=== PATIENT | male | born 1985 | race Two or more races ===

== ENCOUNTER 2020-02-25 17:46 | Emergency (ER) | payer BC ==
[2020-02-25] MEDS ORDERED: ONDANSETRON HCL INJ/PF 4 MG/2 ML SDV IV ONE (18:48)
--- NOTE | 2020-02-25 18:59 | ER Document Report ---
ED GI/ - General Chief Complaint: Nausea/Vomiting Stated Complaint: NAUSEA,VOMITING,DIARRHEA,HEADACHE Time Seen by Provider: 02/25/20 18:15 Notes: CHIEF COMPLAINT: Abdominal pain nausea vomiting diarrhea HPI: 34-year-old male presenting for mid abdominal pain with multiple episodes of vomiting and diarrhea today. No fever. Describes the pain is sharp in nature has had 3 episodes of vomiting today 2 episodes of diarrhea. No definitive fever. Patient states that he did test positive for COVID in September was never retested ROS: See HPI - all other systems were reviewed and are otherwise negative Constitutional: no fever Eyes: no drainage, no blurred vision ENT: no runny nose, no sore throat Cardiovascular: no chest pain Resp: no SOB, no cough GI: + vomiting, + diarrhea, + abdominal pain : no dysuria Integumentary: no rash Allergy: no hives Musculoskeletal: no extremity pain or swelling Neurological: no numbness/tingling, no weakness MEDICATIONS: I agree with the patient medications as charted by the RN. ALLERGIES: I agree with the allergies as charted by the RN. PAST MEDICAL HISTORY/PAST SURGICAL HISTORY: Reviewed and agree as charted by RN. SOCIAL HISTORY: Reviewed and agree as charted by RN. FAMILY HISTORY: No significant familial comorbid conditions directly related to patient complaint EXAM: Reviewed vital signs as charted by RN. CONSTITUTIONAL: Alert and oriented and responds appropriately to questions. Well-appearing; well-nourished HEAD: Normocephalic; atraumatic EYES: PERRL; Conjunctivae clear, sclerae non-icteric ENT: normal nose; no rhinorrhea; moist mucous membranes; pharynx without lesions noted, no uvula edema or deviation, no tonsillar hypertrophy, phonation normal NECK: Supple without meningismus; non-tender; no cervical lymphadenopathy, no masses CARD: RRR; no murmurs, no clicks, no rubs, no gallops; symmetric distal pulses RESP: Normal chest excursion without splinting or tachypnea; breath sounds clear and equal bilaterally; no wheezes, no rhonchi, no rales, pulse oximetry 98% on room air not hypoxic ABD/GI: Normal bowel sounds; non-distended; soft, mild periumbilical lower epigastric tenderness on palpation no specific right lower quadrant tenderness on palpation, no rebound, no guarding; no palpable organomegaly or masses. BACK: The back appears normal and is non-tender to palpation, there is no CVA tenderness EXT: Normal ROM in all joints; non-tender to palpation; no cyanosis, no effusions, no edema SKIN: Normal color for age and race; warm; dry; good turgor; no acute lesions noted NEURO: Moves all extremities equally; Motor and sensory function intact PSYCH: The patient's mood and manner are appropriate. Grooming and personal hygiene are appropriate. MDM: 34-year-old male nausea vomiting diarrhea today with mild upper periumbilical pain. Will obtain CT imaging to evaluate for appendicitis, will obtain screening labs treat nausea vomiting. - Related Data Allergies/Adverse Reactions: No Known Allergies Allergy (Unverified 02/25/20 19:13) Past Medical History - Social History Smoking Status: Unknown if Ever Smoked Frequency of alcohol use: Occasional Drug Abuse: None Family History: Reviewed & Not Pertinent Physical Exam - Vital signs Vitals: Temp Pulse Resp BP Pulse Ox 99.4 F 96 18 131/78 H 100 02/25/20 18:18 02/25/20 18:18 02/25/20 18:18 02/25/20 18:18 02/25/20 18:18 Course - Re-evaluation Re-evalutation: 02/25/20 22:[address] shows mild scattered lymphadenopathy that is nonspecific. Will recheck patient for COVID-19 he will self quarantine at home. I will prescribe Zofran for nausea vomiting - Vital Signs Vital signs: Temp Pulse Resp BP Pulse Ox 99.4 F 96 18 131/78 H 100 02/25/20 18:18 02/25/20 18:18 02/25/20 18:18 02/25/20 18:18 02/25/20 18:18 - Laboratory Result Diagrams: 02/25/20 19:17 02/25/20 19:17 Laboratory results interpreted by me: 02/25/20 02/25/20 02/25/20 19:17 19:17 21:05 Lymph % (Auto) 4.5 L Absolute Lymphs (auto) 0.4 L Seg Neutrophils % 91.0 H Total Protein 8.3 H Urine Protein 100 H Urine Ketones 20 H Urine Urobilinogen 4.0 H Discharge - Discharge Clinical Impression: Vomiting, Abdominal pain, epigastric, Person under investigation for COVID-19 Condition: Stable Disposition: HOME, SELF-CARE Additional Instructions: Take Zofran for any recurrent nausea or vomiting. You are considered a person under investigation for COVID-19 at this time self quarantine at home until you have a test result that is either negative or positive. Test results usually take 2 to 5 days and you should hear from someone at the hospital about your test result Prescriptions: Ondansetron [Zofran Odt 4 mg Tablet] 1 - 2 tab PO Q4H PRN #15 tab.rapdis PRN Reason: For Nausea/Vomiting Referrals: BENITO HILTON MD [[facility]AFF] - Follow up as needed
[2020-02-25 19:39] LABS: ABSOLUTE LYMPHOCYTES (AUTO) 0.4 10^3/uL (0.5-4.7); ABSOLUTE MONOCYTES (AUTO) 0.3 10^3/uL (0.1-1.4); ABSOLUTE NEUT (AUTO) 7.1 10^3/uL (1.7-8.2); BASOPHILS % (AUTO) 0.1 % (0-2); EOSINOPHILS % (AUTO) 0.2 % (0-6); HEMOGLOBIN 14.7 g/dL (13.5-17.0); LYMPHOCYTES % (AUTO) 4.5 % (13-45); MEAN CORPUSCULAR HEMOGLOBIN 28.2 pg (27.0-33.4); MEAN CORPUSCULAR HGB CONC 34.1 g/dL (32.0-36.0); MEAN CORPUSCULAR VOLUME 83 fl (80-97); MONOCYTES % (AUTO) 4.2 % (3-13); PLATELET COUNT 229 10^3/uL (150-450); RED CELL DISTRIBUTION WIDTH 13.3 % (11.5-14.0); TOTAL CELLS COUNTED % (AUTO) 100 %; WHITE BLOOD COUNT 7.8 10^3/uL (4.0-10.5)
[2020-02-25 20:59] LABS: ALBUMIN 4.8 g/dL (3.5-5.0); ALKALINE PHOSPHATASE 85 U/L (38-126); ANION GAP 9 (5-19); ASPARTATE AMINO TRANSFERASE 30 U/L (17-59); BILIRUBIN,DIRECT 0.3 mg/dL (0.0-0.4); BILIRUBIN,TOTAL 0.5 mg/dL (0.2-1.3); BLOOD UREA NITROGEN 14 mg/dL (7-20); CALCIUM 9.6 mg/dL (8.4-10.2); CARBON DIOXIDE 26 mmol/L (22-30); CHLORIDE 104 mmol/L (98-107); GLUCOSE 100 mg/dL (75-110); POTASSIUM 4.3 mmol/L (3.6-5.0); TOTAL PROTEIN 8.3 g/dL (6.3-8.2)
[2020-02-25 21:35] LABS: APPEARANCE,URINE CLEAR; BILIRUBIN,URINE NEGATIVE (NEGATIVE); COLOR,URINE YELLOW; GLUCOSE, URINE NEGATIVE (NEGATIVE); KETONES,URINE 20 mg/dL (NEGATIVE); LEUKOCYTE ESTERASE,URINE NEGATIVE (NEGATIVE); NITRITE,URINE NEGATIVE (NEGATIVE); PROTEIN,URINE 100 mg/dL (NEGATIVE); URINE SPECIFIC GRAVITY 1.026
--- NOTE | 2020-02-25 22:10 | RADIOLOGY REPORT (SQ) ---
EXAM DESCRIPTION: CT ABDOMEN PELVIS WITH IV CONTRAST COMPLETED DATE/TME: 02/25/2020 00:00 CLINICAL HISTORY: 34 years Male abd pain COMPARISON: None. TECHNIQUE: Contiguous axial images obtained through the abdomen and pelvis following IV contrast. Reformatted images obtained. This exam was performed according to our department optimization program which includes automated exposure control, adjustment of the mA and/or kv according to patient size and/or use of iterative reconstruction technique. FINDINGS: The liver appears unremarkable. The spleen and pancreas appear unremarkable. No adrenal masses. The kidneys appear unremarkable. No hydronephrosis. The gallbladder is visualized. No aneurysmal dilatation of the aorta. No bowel obstruction. The appendix is unremarkable. No significant free fluid noted. Scattered small mesenteric lymph nodes which are nonspecific finding. IMPRESSION: Mildly prominent mesenteric lymph nodes No additional evidence of acute process
[2020-02-25 23:57] VITALS: BP 121/84
== END 2020-02-25 23:56 | disposition home or self-care (01) ==
LOC: ER 17:46
DX: R11.2 Nausea with vomiting, unspecified (principal); R10.13 Epigastric pain; R19.7 Diarrhea, unspecified; R51 Headache; Z20.828 Contact with and (suspected) exposure to other viral communicable diseases
CPT/HCPCS: 99285; 96374; 36415; 83690; 85025; 80053; 81001; 74177; U0003; J2405; C9803; 87635

== ENCOUNTER 2020-02-28 18:55 | Emergency (ER) | payer BC ==
[2020-02-28] MEDS ORDERED: ONDANSETRON 4 MG TAB.RAPDIS PO ONE (19:15)
--- NOTE | 2020-02-28 19:17 | ER Document Report ---
ED Medical Screen (RME) - General Chief Complaint: Vomiting/Diarrhea Stated Complaint: VOMITING/DIARRHEA Time Seen by Provider: 02/28/20 19:15 Mode of Arrival: Ambulatory Information source: Patient Notes: 34-year-old male presented to ED for nausea vomiting and diarrhea since Tuesday. He states he was seen a couple days ago for the same thing. He states he has vomited twice today had 3 diarrheal stools. He states he had a temperature 101.1 about a hour before coming in and took some DayQuil. He is alert oriented respirations regular and unlabored speaking in full sentences. I have greeted and performed a rapid initial assessment of this patient. A comprehensive ED assessment and evaluation of the patient, analysis of test results and completion of medical decision making process will be conducted by an additional ED providers. - Related Data Allergies/Adverse Reactions: No Known Allergies Allergy (Unverified 02/25/20 19:13) Physical Exam - Vital signs Vitals: Temp Pulse Resp BP Pulse Ox 99.1 F 93 18 129/84 H 99 02/28/20 19:13 02/28/20 19:13 02/28/20 19:13 02/28/20 19:13 02/28/20 19:13 Course - Vital Signs Vital signs: Temp Pulse Resp BP Pulse Ox 99.1 F 93 18 129/84 H 99 02/28/20 19:13 02/28/20 19:13 02/28/20 19:13 02/28/20 19:13 02/28/20 19:13
[2020-02-28] MEDS ORDERED: NORMAL SALINE 1000 ML 1,000 ML IV ONE ×2 (19:18→22:13)
[2020-02-28 20:48] LABS: ABSOLUTE EOSINOPHILS # (AUTO) 0.1 10^3/uL (0.0-0.6); ABSOLUTE LYMPHOCYTES (AUTO) 0.6 10^3/uL (0.5-4.7); ABSOLUTE MONOCYTES (AUTO) 0.7 10^3/uL (0.1-1.4); ABSOLUTE NEUT (AUTO) 3.5 10^3/uL (1.7-8.2); BASOPHILS % (AUTO) 0.2 % (0-2); EOSINOPHILS % (AUTO) 1.5 % (0-6); HEMATOCRIT 46.2 % (37.9-51.0); HEMOGLOBIN 15.5 g/dL (13.5-17.0); LYMPHOCYTES % (AUTO) 11.7 % (13-45); MEAN CORPUSCULAR HEMOGLOBIN 27.7 pg (27.0-33.4); MEAN CORPUSCULAR HGB CONC 33.4 g/dL (32.0-36.0); MEAN CORPUSCULAR VOLUME 83 fl (80-97); MONOCYTES % (AUTO) 13.7 % (3-13); PLATELET COUNT 221 10^3/uL (150-450); RED BLOOD COUNT 5.58 10^6/uL (4.35-5.55); RED CELL DISTRIBUTION WIDTH 13.3 % (11.5-14.0); SEGMENTED NEUTROPHILS % (AUTO) 72.9 % (42-78); TOTAL CELLS COUNTED % (AUTO) 100 %; WHITE BLOOD COUNT 4.8 10^3/uL (4.0-10.5)
[2020-02-28] MEDS ORDERED: FAMOTIDINE 20 MG TABLET PO ONE (21:07)
[2020-02-28] MEDS ORDERED: PROMETHAZINE HCL 25 MG TABLET PO ONE (21:07)
[2020-02-28 21:08] LABS: ALBUMIN 4.6 g/dL (3.5-5.0); ALKALINE PHOSPHATASE 72 U/L (38-126); ANION GAP 9 (5-19); ASPARTATE AMINO TRANSFERASE 28 U/L (17-59); BILIRUBIN,DIRECT 0.3 mg/dL (0.0-0.4); BILIRUBIN,TOTAL 0.5 mg/dL (0.2-1.3); BLOOD UREA NITROGEN 11 mg/dL (7-20); CALCIUM 9.2 mg/dL (8.4-10.2); CARBON DIOXIDE 27 mmol/L (22-30); CHLORIDE 102 mmol/L (98-107); GLUCOSE 91 mg/dL (75-110); POTASSIUM 4.3 mmol/L (3.6-5.0); TOTAL PROTEIN 7.7 g/dL (6.3-8.2)
--- NOTE | 2020-02-28 21:09 | ER Document Report ---
ED GI/ - General Chief Complaint: Nausea/Vomiting/Diarrhea Stated Complaint: VOMITING/DIARRHEA Time Seen by Provider: 02/28/20 19:15 Mode of Arrival: Ambulatory Notes: Patient is a 34-year-old male who comes emergency department for chief complaint of nausea, vomiting, and episodes of diarrhea. He also reports fever. Symptoms started about 3 days ago, he was seen on 02/25/2020 for the same symptoms on that started, he was tested for COVID-19 at that time and was told he was negative. Patient states that about 1 hour before coming into the emergency department he had a temperature of 101.1 F although he did take DayQuil before coming to the emergency department. Patient states he vomited twice today, had about 3 loose stools. He states he had vomiting Tuesday but did not vomit yesterday. 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 He denies any current symptoms including headache, neck stiffness, shortness of breath, cough, sore throat, abdominal pain, dysuria or discharge. Patient denies any surgeries, daily medications, recreational drugs, or past medical history. Patient does report that in September he was positive for COVID-19. - Related Data Allergies/Adverse Reactions: No Known Allergies Allergy (Unverified 02/25/20 19:13) Past Medical History - General Information source: Patient - Social History Smoking Status: Never Smoker Chew tobacco use (# tins/day): No Frequency of alcohol use: Occasional Drug Abuse: None Lives with: Family Family History: Reviewed & Not Pertinent Patient has homicidal ideation: No - Immunizations Immunizations up to date: Yes Hx Diphtheria, Pertussis, Tetanus Vaccination: Yes Review of Systems - Review of Systems Constitutional: See HPI EENT: No symptoms reported Cardiovascular: No symptoms reported Respiratory: No symptoms reported Gastrointestinal: See HPI Genitourinary: No symptoms reported Male Genitourinary: No symptoms reported Musculoskeletal: No symptoms reported Skin: No symptoms reported Hematologic/Lymphatic: No symptoms reported Neurological/Psychological: No symptoms reported Physical Exam - Vital signs Vitals: Temp Pulse BP Pulse Ox 99.1 F 93 129/84 H 99 02/28/20 19:11 02/28/20 19:11 02/28/20 19:11 02/28/20 19:11 - Notes Notes: GENERAL: Alert, interacts well. No acute distress. HEAD: Normocephalic, atraumatic. EYES: Pupils equal, round, and reactive to light. Extraocular movements intact. ENT: Oral mucosa dry, tongue midline. Oropharynx unremarkable. Airway patent. NECK: Full range of motion. Supple. Trachea midline. No lymphadenopathy. No nuchal rigidity. LUNGS: Clear to auscultation bilaterally, no wheezes, rales, or rhonchi. No respiratory distress. Non-tender chest wall. HEART: Regular rate and rhythm. No murmur ABDOMEN: Unremarkable abdomen with no tenderness, distention, rigidity, or g uarding noted. Bowel sounds present throughout. EXTREMITIES: Moves all 4 extremities spontaneously. No edema, normal radial and dorsalis pedis pulses bilaterally. No cyanosis. BACK: no cervical, thoracic, lumbar midline tenderness. No saddle anesthesia, normal distal neurovascular exam. Moves all extremities in full range of motion. NEUROLOGICAL: Alert and oriented x3. Normal speech. Cranial nerves II through XII grossly intact. Strength 5/5 in all extremities. PSYCH: Normal affect, normal mood. SKIN: Warm, dry, normal turgor. No rashes or lesions noted. Course - Re-evaluation Re-evalutation: This is a patient second evaluation for this illness. He was negative for COVID-19 already. His abdomen is actually very unremarkable, he denies any urinary symptoms or discharge, he has no flank pain, chest pain, shortness of br eath, nuchal rigidity, or headache. Under evaluation after IV fluids and nausea medication patient states he feels great and is requesting to leave. Patient is tolerating p.o. without any difficulty. I still strongly believe this is a viral illness based on his evaluation, I did review his laboratory work-up from triage and this is unremarkable CBC, CMP, lipase, and urine showing basically only dehydration. I discussed expectations, follow-up, we are adjusting patient's nausea medication because he tolerated Phenergan very well here, discussed return precautions. Patient states appreciation and agreement. Stable and well-appearing at time of discharge. - Vital Signs Vital signs: Temp Pulse Resp BP Pulse Ox 98.5 F 76 16 124/81 100 02/28/20 23:51 02/28/20 23:51 02/28/20 23:51 02/28/20 23:51 02/28/20 23:51 - Laboratory Result Diagrams: 02/28/20 20:26 02/28/20 20:26 Laboratory results interpreted by me: 02/28/20 02/28/20 20:26 20:26 RBC 5.58 H Lymph % (Auto) 11.7 L [place] % (Auto) 13.7 H Urine Protein 30 H Urine Ketones 20 H Urine Urobilinogen 2.0 H Discharge - Discharge Clinical Impression: Nausea vomiting and diarrhea, Dehydration Condition: Stable Disposition: HOME, SELF-CARE Additional Instructions: Your work-up does show a dehydration but your evaluation and work-up did not show any concerning findings at this time. This is most likely viral and should simply go away with time. You can take Tylenol for fever if needed, take the nausea medication as prescribed, start with bland food, drink plenty of fluids, rest. Follow-up with primary care. Return if you worsen including uncontrolled vomiting, developing or severe abdominal pain, or any other concerning or worsening symptoms. Prescriptions: Promethazine HCl [Phenergan 25 mg Tablet] 25 mg PO Q6H PRN #15 tablet PRN Reason:
[2020-02-28 21:34] LABS: APPEARANCE,URINE CLEAR; BILIRUBIN,URINE NEGATIVE (NEGATIVE); COLOR,URINE YELLOW; GLUCOSE, URINE NEGATIVE (NEGATIVE); KETONES,URINE 20 mg/dL (NEGATIVE); LEUKOCYTE ESTERASE,URINE NEGATIVE (NEGATIVE); NITRITE,URINE NEGATIVE (NEGATIVE); PROTEIN,URINE 30 mg/dL (NEGATIVE); URINE SPECIFIC GRAVITY 1.028
[2020-02-28 23:55] VITALS: BP 124/81
== END 2020-02-29 00:04 | disposition home or self-care (01) ==
LOC: ER 18:55
DX: R11.2 Nausea with vomiting, unspecified (principal); R19.7 Diarrhea, unspecified; E86.0 Dehydration; R50.9 Fever, unspecified; R51 Headache
CPT/HCPCS: 99284; 96360; 36415; 83690; 85025; 80053; 81001; S0119; J7030